=== PATIENT | male | born 1970 | race Caucasian/White ===

== ENCOUNTER 2019-07-05 12:34 | Emergency (ER) | payer SELFPAY ==
[~2019-07-05] VITALS: Ht 188 cm; Wt 117.9 kg
[2019-07-05 13:41] VITALS: BP 150/97
== END 2019-07-05 13:42 | disposition home or self-care (01) ==
LOC: ER 12:39
DX: R42 Dizziness and giddiness (principal); H93.11 Tinnitus, right ear; R11.0 Nausea; R03.0 Elevated blood-pressure reading, without diagnosis of hypertension; F41.9 Anxiety disorder, unspecified